=== PATIENT | male | born 1960 | race African-American/Black ===

== ENCOUNTER 2021-03-18 11:50 | Emergency (ER) | payer BC ==
[2021-03-18] MEDS ORDERED: Sodium Chloride 0.9% 10 ML Syringe FLUSH PRN (12:17)
[2021-03-18] MEDS ORDERED: Aspirin 81 MG Tab.Chew PO ONE (12:22)
[2021-03-18 12:44] LABS: PTT,PARTIAL THROMBOPLSTIN TIME 24.3 SEC (25.6-32.8)
[2021-03-18 12:52] LABS: ANION GAP 13.6 mmol/L (5-15); CHLORIDE,CL 102 mmol/L (98-107); SODIUM,NA 140 mmol/L (136-145)
--- NOTE | 2021-03-18 13:23 | EDM.PDOC ---
ED HPI GENERAL MEDICAL PROBLEM - General Chief Complaint: Chest Pain Stated Complaint: CHEST PAIN;PAIN DOWN LEFT ARM Time Seen by Provider: 03/18/21 12:36 Source of Information: Reports: Patient History Limitations: Reports: No Limitations - History of Present Illness INITIAL COMMENTS - FREE TEXT/NARRATIVE: Pt. presents to ER with complaints of sharp chest pain with radiation down L arm. He states that he was doing some mopping when the pain started. He stated that, by the time he was examined by ER provider, his pain had spontaneously resolved. He denied any shortness of breath. No cough or chest congestion. No nausea, vomiting, or diarrhea. He has had both of his covid vaccinations. Pt. states that he has had similar pain intermittently in the past. He states that he does not have a PCP here in [place]. Pt. denies any jaw, neck or back pain. He was not diaphoretic. Onset: Today Onset Date: 03/18/21 Location: Reports: Chest, Upper Extremity, Left Quality: Reports: Sharp Chest Pain and Left Arm Tingling Pain Score (Numeric/FACES): 3 - Related Data Allergies Allergy/AdvReac Type Severity Reaction Status Date / Time Penicillins Allergy Severe Other Verified 03/18/21 12:24 Home Meds: Home Meds . [No Known Home Meds] 03/18/21 [History] Social & Family History - Tobacco Use Tobacco Use Status *Q: Never Tobacco User - Recreational Drug Use Recreational Drug Use: Yes Recreational Drug Type: Reports: Marijuana/Hashish Recreational Drug Use Frequency: Not Used In Over 1 Month ED ROS GENERAL - Review of Systems Review Of Systems: See Below Constitutional: Reports: No Symptoms HEENT: Reports: No Symptoms Respiratory: Reports: No Symptoms Cardiovascular: Reports: Chest Pain Endocrine: Reports: No Symptoms GI/Abdominal: Reports: No Symptoms : Reports: No Symptoms Musculoskeletal: Reports: Arm Pain Skin: Reports: No Symptoms Neurological: Reports: No Symptoms Psychiatric: Reports: No Symptoms Hematologic/Lymphatic: Reports: No Symptoms Immunologic: Reports: No Symptoms ED EXAM, GENERAL - Physical Exam Exam: See Below Exam Limited By: No Limitations General Appearance: Alert, WD/WN, No Apparent Distress Eye Exam: Bilateral Eye: EOMI Head: Atraumatic, Normocephalic Neck: Normal Inspection, Supple, Non-Tender, Full Range of Motion Respiratory/Chest: No Respiratory Distress, Lungs Clear, Normal Breath Sounds, No Accessory Muscle Use, Chest Non-Tender Cardiovascular: Normal Peripheral Pulses, Regular Rate, Rhythm, No Edema, No JVD, No Murmur Peripheral Pulses: 4+: Radial (L) GI/Abdominal: Soft, Non-Tender, No Distention, No Mass (Male) Exam: Deferred Rectal (Males) Exam: Deferred Back Exam: Normal Inspection, Full Range of Motion Extremities: Normal Inspection, Normal Range of Motion, Non-Tender, No Pedal Edema, Normal Capillary Refill Neurological: Alert, Oriented, CN II-XII Intact, Normal Cognition, Normal Gait, Normal Reflexes, No Motor/Sensory Deficits Psychiatric: Normal Affect, Normal Mood Skin Exam: Warm, Dry, Intact, Normal Color, No Rash Lymphatic: No Adenopathy #1 Interpretation Rhythm: NSR [place]: Normal P-Wave: Present QRS: Normal ST-T: Normal QT: Normal Course - Vital Signs Last Recorded V/S: Last Vital Signs Temp 36.7 C 03/18/21 12:29 Pulse 73 03/18/21 12:29 Resp 13 03/18/21 12:29 BP 172/94 H 03/18/21 12:29 Pulse Ox 99 03/18/21 12:29 - Orders/Labs/Meds Orders: Active Orders 24 hr Category Date Time Status Peripheral IV Insertion Adult [OM.PC] Routine Oth 03/18/21 12:17 Ordered Labs: Laboratory Tests 03/18/21 03/18/21 03/18/21 Range/Units 12:15 12:15 12:15 WBC 7.1 (4.0-10.0) x10^3/uL RBC 5.16 (4.5-6.0) x10^6/uL Hgb 13.6 L (14.0-18.0) g/dL Hct 40.6 (40.0-52.0) % MCV 78.7 (78.0-93.0) fL MCH 26.4 (26.0-32.0) pg MCHC 33.5 (32.0-36.0) g/dL RDW Coeff of Justina 13.2 (10.0-15.0) % Plt Count 270 (130-400) x10^3/uL Immature Gran % (Auto) 0.30 (0.00-0.43) % Neut % (Auto) 43.8 L (50.0-80.0) % Lymph % (Auto) 44.3 (25.0-50.0) % Grand % (Auto) 10.4 (2.0-11.0) % Eos % (Auto) 0.8 (0.0-4.0) % Baso % (Auto) 0.4 (0.2-1.2) % Neut # (Auto) 3.1 (1.8-7.7) x10^3/uL Lymph # (Auto) 3.2 (1.0-4.8) x10^3/uL Grand # (Auto) 0.7 (0.0-0.8) x10^3/uL Eos # (Auto) 0.1 (0.0-0.5) x10^3/uL Baso # (Auto) 0.0 (0.0-0.2) x10^3/uL Immature Gran # (Auto) 0.02 (0.00-0.07) x10^3/uL PT 10.2 (9.9-12.5) SEC INR 0.9 L (2.0-3.5) APTT 24.3 L (25.6-32.8) SEC Sodium 140 (136-145) mmol/L Potassium 3.6 (3.5-5.1) mmol/L Chloride 102 (98-107) mmol/L Carbon Dioxide 28 (21-32) mmol/L Anion Gap 13.6 (5-15) mmol/L BUN 13 (7-18) mg/dL Creatinine 1.3 (0.70-1.30) mg/dL Est Cr Clr Drug Dosing 61.18 mL/min Estimated GFR (MDRD) 57 Glucose 94 (70-99) mg/dL Calcium 8.7 (8.5-10.1) mg/dL Corrected Calcium 8.6 (8.5-10.1) mg/dL Phosphorus 3.5 (2.6-4.7) mg/dL Magnesium 2.3 (1.8-2.4) mg/dL Total Bilirubin 0.5 (0.2-1.0) mg/dL AST 20 (15-37) U/L ALT 26 (16-63) U/L Alkaline Phosphatase 67 (46-116) U/L Troponin I High Sens (<=76) ng/L C-Reactive Protein < 0.2 (<=0.9) mg/dL NT-Pro-B Natriuret Pep 13 (<=125) pg/mL Total Protein 7.3 (6.4-8.2) g/dL Albumin 4.1 (3.4-5.0) g/dL Globulin 3.2 Albumin/Globulin Ratio 1.28 TSH, Ultra Sensitive 1.948 (0.358-3.74) uIU/mL 03/18/21 Range/Units 12:15 WBC (4.0-10.0) x10^3/uL RBC (4.5-6.0) x10^6/uL Hgb (14.0-18.0) g/dL Hct (40.0-52.0) % MCV (78.0-93.0) fL MCH (26.0-32.0) pg MCHC (32.0-36.0) g/dL RDW Coeff of Justina (10.0-15.0) % Plt Count (130-400) x10^3/uL Immature Gran % (Auto) (0.00-0.43) % Neut % (Auto) (50.0-80.0) % Lymph % (Auto) (25.0-50.0) % Grand % (Auto) (2.0-11.0) % Eos % (Auto) (0.0-4.0) % Baso % (Auto) (0.2-1.2) % Neut # (Auto) (1.8-7.7) x10^3/uL Lymph # (Auto) (1.0-4.8) x10^3/uL Grand # (Auto) (0.0-0.8) x10^3/uL Eos # (Auto) (0.0-0.5) x10^3/uL Baso # (Auto) (0.0-0.2) x10^3/uL Immature Gran # (Auto) (0.00-0.07) x10^3/uL PT (9.9-12.5) SEC INR (2.0-3.5) APTT (25.6-32.8) SEC Sodium (136-145) mmol/L Potassium (3.5-5.1) mmol/L Chloride (98-107) mmol/L Carbon Dioxide (21-32) mmol/L Anion Gap (5-15) mmol/L BUN (7-18) mg/dL Creatinine (0.70-1.30) mg/dL Est Cr Clr Drug Dosing mL/min Estimated GFR (MDRD) Glucose (70-99) mg/dL Calcium (8.5-10.1) mg/dL Corrected Calcium (8.5-10.1) mg/dL Phosphorus (2.6-4.7) mg/dL Magnesium (1.8-2.4) mg/dL Total Bilirubin (0.2-1.0) mg/dL AST (15-37) U/L ALT (16-63) U/L Alkaline Phosphatase (46-116) U/L Troponin I High Sens 12 (<=76) ng/L C-Reactive Protein (<=0.9) mg/dL NT-Pro-B Natriuret Pep (<=125) pg/mL Total Protein (6.4-8.2) g/dL Albumin (3.4-5.0) g/dL Globulin Albumin/Globulin Ratio TSH, Ultra Sensitive (0.358-3.74) uIU/mL Meds: Medications Discontinued Medications Generic Name Dose Route Start Last Admin Trade Name Freq PRN Reason Stop Dose Admin Aspirin 324 mg 03/18/21 12:22 03/18/21 12:28 Aspirin 81 Mg Tab.Chew PO 03/18/21 12:23 324 mg ONETIME ONE Administration Sodium Chloride 10 ml 03/18/21 12:17 Sodium Chloride 0.9% 10 Ml Syringe FLUSH ASDIRECTED PRN Keep Vein Open Departure - Departure Time of Disposition: 14:15 Disposition: Home, Self-Care 01 Clinical Impression: Atypical chest pain - Discharge Information Instructions: Nonspecific Chest Pain, Adult, [id number] Referrals: PCP,None [Ordering Only Provider] - Forms: ED Department Discharge Additional Instructions: Home to rest. Establish care at one of the clinics. Return to ER if you have worsening discomfort, shortness of breath that doesn't go away at rest. Sepsis Event Note (ED) - Evaluation Sepsis Screening Result: No Definite Risk - Focused Exam Vital Signs: Vital Signs Temp Pulse Resp BP Pulse Ox 03/18/21 12:29 36.7 C 73 13 172/94 H 99 - Problem List Review Problem List Initiated/Reviewed/Updated: Yes - My Orders Last 24 Hours: My Active Orders 03/18/21 12:17 Peripheral IV Insertion Adult [OM.PC] Routine - Assessment/Plan Last 24 Hours: My Active Orders 03/18/21 12:17 Peripheral IV Insertion Adult [OM.PC] Routine Plan: Pt. was discharged. Advised to follow-up in clinic/establish care. He was pain- free during his stay in ER, reported that he was feeling normal. He will return to ER if he develops any chest pain, shortness of breath, arm/jaw pain, or other worrisome signs/symptoms.
== END 2021-03-18 13:38 | disposition home or self-care (01) ==
LOC: SUPCPDRO 11:50 → VM.ED 11:50
DX: R07.89 Other chest pain (principal); Z88.0 Allergy status to penicillin
CPT/HCPCS: 80053; 83735; 83880; 84100; 84443; 84484; 85025; 85610; 85730; 86140; 93005; 93010; 99284; 99285-25; A9270-GY